=== PATIENT | female | born 1995 | race Caucasian/White ===

== ENCOUNTER 2017-04-30 14:40 | Inpatient (IN) | END 2017-05-01 20:55 | disposition home or self-care (01) | DRG 781 ==

== ENCOUNTER 2017-05-04 15:23 | Outpatient (CLI) | END 2017-05-04 17:01 | disposition home or self-care (01) ==

== ENCOUNTER 2017-05-06 22:30 | Inpatient (IN) | END 2017-05-10 21:30 | disposition home or self-care (01) | DRG 775 ==